=== PATIENT | female | born 1965 | race African-American/Black ===

== ENCOUNTER 2017-07-26 03:18 | Emergency (ER) | payer MEDICAID ==
[~2017-07-26] VITALS: Ht 170.2 cm; Wt 114.2 kg
[~2017-07-26 03:18] MED LIST: LISI-170 PO; METF850T2 PO
[2017-07-26] MEDS ORDERED: BENAZEPRIL 10 MG TABLET PO ONE (04:54)
[2017-07-26] MEDS ORDERED: BENZONATATE 100 MG CAPSULE PO ONE (05:00)
[2017-07-26 06:11] VITALS: BP 155/92
== END 2017-07-26 06:12 | disposition home or self-care (01) ==
LOC: ED 05:24
DX: J44.1 Chronic obstructive pulmonary disease with (acute) exacerbation (principal); Z76.0 Encounter for issue of repeat prescription; J20.9 Acute bronchitis, unspecified; I10 Essential (primary) hypertension; E11.65 Type 2 diabetes mellitus with hyperglycemia
CPT/HCPCS: 71020; 82962; 93005; 99285; J7512

== ENCOUNTER 2017-09-28 07:35 | Emergency (ER) | payer MEDICAID ==
[~2017-09-28] VITALS: Ht 170.2 cm; Wt 111.9 kg
[2017-09-28 07:37] VITALS: BP 160/102
== END 2017-09-28 08:15 | disposition home or self-care (01) ==
LOC: ED 08:00
DX: L24.9 Irritant contact dermatitis, unspecified cause (principal); I10 Essential (primary) hypertension; E11.9 Type 2 diabetes mellitus without complications; J44.9 Chronic obstructive pulmonary disease, unspecified; F20.9 Schizophrenia, unspecified
CPT/HCPCS: 99283; Q0177